=== PATIENT | female | born 1940 | race Caucasian/White ===

== ENCOUNTER 2018-01-17 12:04 | Day surgery (SDC) | payer MEDICARE ==
[2018-01-17] MEDS ORDERED: PROPOFOL 10 MG/ML VIAL IV ONE (12:05)
[2018-01-17] MEDS ORDERED: LIDOCAINE 2% MDV (20MG/ML) 20ML VIAL IV ONE (12:05)
[2018-01-17] MEDS ORDERED: MIDAZOLAM HCL 2MG/2ML VIAL IV ONE (12:05)
[2018-01-17] MEDS ORDERED: ONDANSETRON HCL IV 4 MG/2 ML VIAL IVP ONE (12:05)
--- NOTE | 2018-01-18 10:40 | Operative Note ---
DATE OF SURGERY: 01/17/2018 OPERATION: COLONOSCOPY to the cecum with cold biopsy forceps polypectomy. INDICATION: Recent episodes of diverticulitis. The patient also with a prior history of adenomatous polyps. Last colonoscopy was in 2010. 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 ANESTHESIA: Intravenous sedation was administered by the department of anesthesiology and included Diprivan titrated to effect. PROCEDURE: Following informed consent from this alert individual including a discussion of the risks and benefits of the procedure and an opportunity for the patient to ask questions, the patient was in the left lateral decubitus position. A digital rectal examination was performed. No abnormalities were noted. Following this, the Olympus [id number] video colonoscope was inserted into the rectum without resistance. The rectal mucosa had a normal appearance with normal folds and distensibility. The sigmoid colon had scattered diverticulosis noted with what appeared to be a small 3-4 mm inflammatory type polyp. The polyp was removed with biopsy forceps. The colonoscope was further advanced up through the bowel to the level of the cecum. The colon preparation was good. The cecum was identified by noting the appendiceal orifice and ileocecal valve. From the base of the cecum, the colonoscope was then withdrawn. No additional changes were noted. Within the rectum, however, retroflexion revealed external hemorrhoids which were small in size. The endoscope was straightened and removed. The patient tolerated the procedure well and was returned to the recovery area in stable condition. IMPRESSION: 1. Probable inflammatory polyp in the sigmoid colon removed with biopsy forceps. It measured 3-4 mm in size. 2. Sigmoid diverticulosis. 3. Small external hemorrhoids. RECOMMENDATIONS: Further recommendations will be forthcoming pending results of pathology obtained today. The patient will otherwise be following up with primary care physicians. As always, thank you for allowing me to participate in the care of your patient. CC: CARRILLO BURROUGHS MD, FACP Paul Cervantes, DO Gaurav Lama, DO Dr. Dajuan IBRAHIM
--- NOTE | 2018-01-18 10:40 | Operative Note ---
DATE OF SURGERY: 01/17/2018 OPERATION: ESOPHAGOGASTRODUODENOSCOPY with multiple biopsies. 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 Upper endoscopy is performed at this time for further evaluation. This lesion has been previously removed and fulgurated by [facility] physicians. She will also undergo colonoscopy at this time. He also has epigastric pain. ANESTHESIA: Intravenous sedation was administered by the department of anesthesiology and included Diprivan titrated to effect. PROCEDURE: Following informed consent from this alert individual, including a discussion of the risks and benefits of the procedure and an opportunity for the patient to ask questions, the patient was in the left lateral decubitus position. The Olympus [id number] video endoscope was inserted into the esophagus without resistance. The proximal esophagus had a normal appearance with normal folds and distensibility. The mid and distal esophagus demonstrated some edema with erythema but no ulcerations or erosions were seen. The squamocolumnar junction approximated the diaphragmatic hiatus. The structure was traversed and the stomach was entered. The gastric fundus and pars media had erythematous-appearing mucosa with streak-like erythema predominating. There were no ulcerations or erosions noted. There was evidence of previous antrectomy. The duodenal bulb was unremarkable; however, the second portion of the duodenum at the level of the papilla demonstrated a flat abnormal-appearing polyp extending perhaps 1.5 cm in total size. Multiple biopsies of this lesion were taken. The endoscope was then drawn back into the stomach. Retroflexion accomplished following air insufflation failed to demonstrate any additional abnormalities. The endoscope was straightened. Biopsies were taken from the stomach to assess for H pylori and check histology. After biopsy, the endoscope was then withdrawn back through a normal esophagus and removed from the patient. She tolerated the procedure well and was returned to the recovery area in stable condition. IMPRESSION: 1. Diffuse gastritis. 2. Previous antrectomy. 3. 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 Biopsies taken. RECOMMENDATION: The patient will continue on acid-blockade therapy. I might add Carafate to see if this helps with her discomfort. Further recommendations will be forthcoming pending results of biopsy. She will be advised to follow up with [facility] in regard to the adenoma noted above. She will also be following up with other physicians. As always, thank you for allowing me to participate in the care of your patient. CC: CARRILLO BURROUGHS MD, FACP Paul Cervantes, DO Dr. Iva Lama, DO SANGD
== END 2018-01-17 14:27 | disposition home or self-care (01) ==
LOC: HOP 12:04
PROVIDERS: ATTEND Internal Medicine Gastroenterology
DX: K57.92 Diverticulitis of intestine, part unspecified, without perforation or abscess without bleeding (principal); Z86.010 Personal history of colon polyps; C34.90 Malignant neoplasm of unspecified part of unspecified bronchus or lung; C79.31 Secondary malignant neoplasm of brain; K51.40 Inflammatory polyps of colon without complications; I10 Essential (primary) hypertension; E11.9 Type 2 diabetes mellitus without complications; Z79.84 Long term (current) use of oral hypoglycemic drugs; E78.00 Pure hypercholesterolemia, unspecified; R07.9 Chest pain, unspecified; K64.4 Residual hemorrhoidal skin tags; K29.70 Gastritis, unspecified, without bleeding; Z90.3 Acquired absence of stomach [part of]
CPT/HCPCS: 45380; 43235; 00813; J2405